=== PATIENT | male | born 1970 | race Caucasian/White ===

== ENCOUNTER 2023-06-22 16:15 | Inpatient (IN) | payer OTHER ==
[~2023-06-22] VITALS: Ht 182.9 cm; Wt 79.8 kg
[2023-06-22 17:13] LABS: BASOPHILS % (AUTO) 0.8 % (0.0-2.0); EOSINOPHILS % (AUTO) 7.8 % (1.0-6.0); HEMATOCRIT 37.6 % (41-53); HEMOGLOBIN 12.7 g/dL (13.5-17.5); LYMPHOCYTES # (AUTO) 1.7 K/uL (1.0-4.8); LYMPHOCYTES % (AUTO) 25.5 % (22.0-44.0); MEAN CORPUSCULAR HEMOGLOBIN 29.1 pg (26.0-34.0); MEAN CORPUSCULAR HGB CONC 33.7 G/dL (31.0-37.0); MEAN CORPUSCULAR VOLUME 86 fL (80-100); MONOCYTES # (AUTO) 0.4 K/uL (0.1-1.0); MONOCYTES % (AUTO) 6.8 % (2.0-9.0); NEUTROPHILS # (AUTO) 3.8 K/uL (1.8-7.7); NEUTROPHILS % (AUTO) 59.1 % (40.0-70.0); PLATELET COUNT (AUTO) 219 K/uL (150-450); RED BLOOD CELL COUNT(AUTO) 4.36 MIL/uL (4.50-5.90); RED CELL DISTRIBUTION WIDTH 16.3 % (11.5-14.5); WHITE BLOOD COUNT (AUTO) 6.5 K/uL (4.5-11.0)
[2023-06-22 17:22] LABS: ANION GAP 2 mmol/L (8-16); CARBON DIOXIDE 31 mmol/L (22-29); CHLORIDE 108 mmol/L (98-107); CREATININE 0.89 mg/dL (0.60-1.30); GLUCOSE,RANDOM 140 mg/dL (70-110); POTASSIUM 5.9 mmol/L (3.5-5.1); SODIUM SERUM 141 mmol/L (136-145); UREA NITROGEN, BLOOD 19 mg/dL (7-18)
[2023-06-22 17:23] LABS: CALCIUM, TOTAL 9.3 mg/dL (8.8-10.5); GLOMERULAR FILTR. RATE CALC > 60 mL/min (>60)
[2023-06-22 17:28] LABS: ALANINE AMINOTRANSFERASE 23 U/L (12-78); ALKALINE PHOSPHATASE 99 U/L (46-116); ASPARTATE AMINOTRANSFERASE 26 U/L (15-37); BILIRUBIN,TOTAL 0.5 mg/dL (0.1-1.0); LIPASE 16 U/L (16-77); TOTAL PROTEIN, SERUM 7.8 g/dL (6.4-8.2)
[2023-06-22 17:31] LABS: LACTIC ACID 0.6 mmol/L (0.4-2.0)
[2023-06-22 17:36] LABS: ALCOHOL, BLOOD (SERUM) < 3 mg/dL (0-10)
[2023-06-22] MEDS ORDERED: GADOTERATE MEGLUMINE 10 MMOL/20 ML VIAL IVP ONE (17:41)
[2023-06-22 17:50] LABS: ERYTHROCYTE SEDIMENTATION RATE 9 MM/HR (0-20)
[2023-06-22 19:55] LABS: COVID AG,FIA SOURCE NASAL SWAB
[2023-06-22 20:42] LABS: SARS-COV2 (COVID) ANTIGEN,FIA Negative (Negative)
[2023-06-22] MEDS ORDERED: ONDANSETRON HCL 4 MG/2 ML VIAL IVP PRN (21:00)
[2023-06-22] MEDS ORDERED: ZOLPIDEM TARTRATE 5 MG TABLET PO PRN (21:00)
[2023-06-22] MEDS ORDERED: MAGNESIUM HYDROXIDE SUSPENSION 30 ML UDCUP PO PRN (21:00)
[2023-06-22] MEDS: DOCUSATE SODIUM 100 MG CAPSULE PO SCH (21:00)
[2023-06-22] MEDS ORDERED: BISACODYL 10 MG RECTAL RECTAL SUPPOSITORY PR PRN (21:00)
[2023-06-22] MEDS ORDERED: ACETAMINOPHEN 325 MG TABLET PO PRN (21:00)
[2023-06-22] MEDS ORDERED: SODIUM POLYSTYRENE SULFONATE 15 GM/60 ML SUSPENSION BOTTLE PO ONE (21:15)
[2023-06-22] MEDS: GABAPENTIN 300 MG CAPSULE PO SCH (21:29)
[2023-06-22] MEDS: DEXAMETHASONE SOD PHOS 4 MG/ML VIAL IVP SCH (21:29)
[2023-06-22 21:30] VITALS: BP 148/92; PULSE 67; RESP 20; TEMP 97.7
[2023-06-23] MEDS: HEPARIN SODIUM,PORCINE 5,000 UNITS/ML VIAL SQ SCH ×3 (00:03→15:48)
[2023-06-23] MEDS: DEXAMETHASONE SOD PHOS 4 MG/ML VIAL IVP SCH ×5 (00:56→23:56)
[2023-06-23 01:48] LABS: APPEARANCE,URINE CLEAR (CLEAR); BILIRUBIN,URINE NEGATIVE (NEGATIVE); COLOR,URINE LIGHT YELLOW (YELLOW); GLUCOSE, URINE (UA) NEGATIVE (NEGATIVE); KETONES,URINE NEGATIVE (NEGATIVE); LEUKOCYTE ESTERASE ,URINE NEGATIVE (NEGATIVE); NITRATE,URINE NEGATIVE (NEGATIVE); OCCULT BLOOD,URINE NEGATIVE (NEGATIVE); PH,URINE 5.5 (5.0-8.0); PH,URINE DRUG SCREEN 5.5 (5.0-8.0); PROTEIN,URINE NEGATIVE (NEGATIVE); UROBILINOGEN,URINE <=1.0 mg/dL (<=1.0)
[2023-06-23 02:02] LABS: BACTERIA,URINE None Seen /HPF (None Seen); RBC,URINE None Seen /HPF (0-2); SQUAMOUS EPITHELIAL CELL,UR None Seen /LPF (None Seen); WBC,URINE None Seen /HPF (0-5)
[2023-06-23 02:03] LABS: ALCOHOL, URINE DRUG SCREEN NEGATIVE (NEGATIVE); AMPHET/METH SCREEN,URINE NEGATIVE (NEGATIVE); BARBITURATE SCREEN, URINE NEGATIVE (NEGATIVE); BENZODIAZEPINES SCREEN,URINE NEGATIVE (NEGATIVE); CANNABINOID SCREEN,URINE NEGATIVE (NEGATIVE); COCAINE SCREEN,URINE NEGATIVE (NEGATIVE); METHADONE SCREEN, URINE NEGATIVE (NEGATIVE); OPIATE SCREEN,URINE NEGATIVE (NEGATIVE); PHENCYCLIDINE SCREEN,URINE NEGATIVE (NEGATIVE)
[2023-06-23] MEDS ORDERED: INFLUENZA VIRUS VACCINE QVS 2023-24 (6MO+)/PF 60 MCG/0.5 ML SYRINGE IM. ONE (02:30)
[2023-06-23] MEDS ORDERED: PNEUMOCOCCAL VACCINE POLYVALENT 0.5 ML SYRINGE [PPSV23] IM. ONE (02:30)
[2023-06-23 04:36] VITALS: BP 109/69; PULSE 57; RESP 18; TEMP 97.8
[2023-06-23 08:30] VITALS: BP 124/77; PULSE 62; RESP 18; TEMP 97.8
[2023-06-23] MEDS: DOCUSATE SODIUM 100 MG CAPSULE PO SCH ×2 (08:58→20:12)
[2023-06-23] MEDS: PANTOPRAZOLE SODIUM 40 MG DR TABLET PO SCH (08:58)
[2023-06-23] MEDS: GABAPENTIN 300 MG CAPSULE PO SCH ×3 (08:58→20:12)
[2023-06-23 15:36] VITALS: BP 122/79; PULSE 64; RESP 18; TEMP 98.1
[2023-06-23 20:06] VITALS: BP 134/83; PULSE 89; RESP 20; TEMP 98
[2023-06-24 05:54] VITALS: BP 121/61; PULSE 59; RESP 18; TEMP 98
[2023-06-24 06:49] LABS: ANION GAP 7 mmol/L (8-16); CALCIUM, TOTAL 9.5 mg/dL (8.8-10.5); CARBON DIOXIDE 29 mmol/L (22-29); CHLORIDE 106 mmol/L (98-107); CREATININE 0.79 mg/dL (0.60-1.30); GLOMERULAR FILTR. RATE CALC > 60 mL/min (>60); GLUCOSE,RANDOM 138 mg/dL (70-110); POTASSIUM 4.8 mmol/L (3.5-5.1); SODIUM SERUM 142 mmol/L (136-145); UREA NITROGEN, BLOOD 20 mg/dL (7-18)
[2023-06-24] MEDS: HEPARIN SODIUM,PORCINE 5,000 UNITS/ML VIAL SQ SCH ×3 (08:05→15:41)
[2023-06-24] MEDS: GABAPENTIN 300 MG CAPSULE PO SCH ×3 (08:05→21:07)
[2023-06-24] MEDS: DOCUSATE SODIUM 100 MG CAPSULE PO SCH ×2 (08:05→21:06)
[2023-06-24] MEDS: PANTOPRAZOLE SODIUM 40 MG DR TABLET PO SCH (08:05)
[2023-06-24 09:57] VITALS: BP 132/77; PULSE 52; RESP 18; TEMP 98
[2023-06-24 20:00] VITALS: BP 131/76; PULSE 55; RESP 18; TEMP 98.4
[2023-06-24] MEDS: HYDROCODONE/ACETAMINOPHEN 5-325 MG TABLET PO PRN (21:09)
[2023-06-25] MEDS: HEPARIN SODIUM,PORCINE 5,000 UNITS/ML VIAL SQ SCH ×4 (00:37→23:34)
[2023-06-25 05:30] VITALS: BP 100/70; PULSE 58; RESP 18; TEMP 98.1
[2023-06-25] MEDS: HYDROCODONE/ACETAMINOPHEN 5-325 MG TABLET PO PRN ×4 (05:32→18:20)
[2023-06-25 08:00] VITALS: BP 113/71; PULSE 66; RESP 20; TEMP 98.1
[2023-06-25] MEDS: PANTOPRAZOLE SODIUM 40 MG DR TABLET PO SCH (08:21)
[2023-06-25] MEDS: GABAPENTIN 300 MG CAPSULE PO SCH ×3 (08:21→21:07)
[2023-06-25] MEDS: DOCUSATE SODIUM 100 MG CAPSULE PO SCH ×2 (08:21→21:07)
[2023-06-25 20:34] VITALS: BP 113/72; PULSE 51; RESP 20; TEMP 97.5
[2023-06-26 05:15] VITALS: BP 98/59; PULSE 50; RESP 18; TEMP 97.8
[2023-06-26] MEDS: HYDROCODONE/ACETAMINOPHEN 5-325 MG TABLET PO PRN ×4 (06:37→23:14)
[2023-06-26] MEDS: GABAPENTIN 300 MG CAPSULE PO SCH ×3 (08:29→20:41)
[2023-06-26] MEDS: DOCUSATE SODIUM 100 MG CAPSULE PO SCH ×2 (08:29→20:41)
[2023-06-26] MEDS: PANTOPRAZOLE SODIUM 40 MG DR TABLET PO SCH (08:29)
[2023-06-26] MEDS: HEPARIN SODIUM,PORCINE 5,000 UNITS/ML VIAL SQ SCH ×3 (08:29→23:11)
[2023-06-26 09:23] VITALS: BP 95/63; PULSE 51; RESP 20; TEMP 97.9
[2023-06-26 12:45] LABS: ANION GAP 4 mmol/L (8-16); CARBON DIOXIDE 33 mmol/L (22-29); CHLORIDE 105 mmol/L (98-107); CREATININE 0.83 mg/dL (0.60-1.30); GLOMERULAR FILTR. RATE CALC > 60 mL/min (>60); GLUCOSE,RANDOM 96 mg/dL (70-110); POTASSIUM 4.7 mmol/L (3.5-5.1); SODIUM SERUM 142 mmol/L (136-145); UREA NITROGEN, BLOOD 17 mg/dL (7-18)
[2023-06-26 20:16] VITALS: BP 112/66; PULSE 62; RESP 20; TEMP 97.8
[2023-06-27] MEDS: HYDROCODONE/ACETAMINOPHEN 5-325 MG TABLET PO PRN ×2 (04:02→13:24)
[2023-06-27 05:42] VITALS: BP 110/61; PULSE 65; RESP 20; TEMP 97.8
[2023-06-27 08:31] VITALS: BP 106/59; PULSE 61; RESP 20; TEMP 98.9
[2023-06-27] MEDS: GABAPENTIN 300 MG CAPSULE PO SCH ×3 (08:44→20:12)
[2023-06-27] MEDS: HEPARIN SODIUM,PORCINE 5,000 UNITS/ML VIAL SQ SCH ×3 (08:44→23:20)
[2023-06-27] MEDS: PANTOPRAZOLE SODIUM 40 MG DR TABLET PO SCH (08:44)
[2023-06-27] MEDS: DOCUSATE SODIUM 100 MG CAPSULE PO SCH ×2 (09:00→20:12)
[2023-06-27 16:00] VITALS: BP_SYST 119; BP_DIAS 61; BP_DIAS 75; PULSE 71; PULSE 84; RESP 16; RESP 18; TEMP 97; TEMP 99
[2023-06-27 20:21] VITALS: BP 122/78; PULSE 88; RESP 20; TEMP 98.9
[2023-06-28 05:49] VITALS: BP 116/75; PULSE 80; RESP 20; TEMP 98.2
[2023-06-28] MEDS: HEPARIN SODIUM,PORCINE 5,000 UNITS/ML VIAL SQ SCH ×2 (08:00→16:00)
[2023-06-28] MEDS: GABAPENTIN 300 MG CAPSULE PO SCH ×3 (08:28→20:08)
[2023-06-28] MEDS: PANTOPRAZOLE SODIUM 40 MG DR TABLET PO SCH (08:28)
[2023-06-28] MEDS: DOCUSATE SODIUM 100 MG CAPSULE PO SCH ×2 (08:28→20:08)
[2023-06-28] MEDS: HYDROCODONE/ACETAMINOPHEN 5-325 MG TABLET PO PRN ×3 (08:29→16:36)
[2023-06-28] MEDS: MORPHINE SULFATE 2 MG/ML SYRINGE IVP PRN ×3 (08:41→20:09)
[2023-06-28 11:04] VITALS: BP 113/60; PULSE 64; RESP 20; TEMP 98.1
[2023-06-28] MEDS ORDERED: GABA-1181 PO (13:47)
[2023-06-28] MEDS ORDERED: PANT-31 PO (13:49)
[2023-06-28] MEDS ORDERED: ACET650S24 PR (13:50)
[2023-06-28 20:24] VITALS: BP 119/70; PULSE 66; RESP 20; TEMP 100.2
== END 2023-06-28 20:28 | DRG 552 ==
LOC: EMS 16:17 → 6S 16:48
PROVIDERS: ADMIT Internal Medicine; ATTEND Internal Medicine
DX: M47.897 Other spondylosis, lumbosacral region (principal); E87.5 Hyperkalemia; R32 Unspecified urinary incontinence; D64.9 Anemia, unspecified; E87.6 Hypokalemia; Z20.822 Contact with and (suspected) exposure to COVID-19; G89.29 Other chronic pain; R33.9 Retention of urine, unspecified; M48.061 Spinal stenosis, lumbar region without neurogenic claudication; Z53.20 Procedure and treatment not carried out because of patient's decision for unspecified reasons; Z79.82 Long term (current) use of aspirin; Z79.899 Other long term (current) drug therapy
CPT/HCPCS: 72158; 80048; 80053; 80307; 81001; 83605; 83690; 84132; 85025; 85651; 97110; 97116; 97162; 97165; 97530; 99285; G0480; J1100; J1644; J2270